=== PATIENT | female | born 1980 | race Caucasian/White ===

== ENCOUNTER 2018-03-18 09:58 | Inpatient (IN) | payer BC, MEDICAID ==
[~2018-03-18] VITALS: Ht 157.5 cm; Wt 79.5 kg
[2018-03-18] VITALS (25 sets, daily range): BP systolic 98–140; BP diastolic 54–85; PULSE 67–105; TEMP 97.6–98.1
[~2018-03-18 09:58] MED LIST: MOTRIN 600600 MG/TAB PO; PERCOCET 325 MG1 TA2 PO
[2018-03-18] MEDS ORDERED: ZOLOFT 100MG100 MG PO (10:07)
[2018-03-18] MEDS ORDERED: ALBUTEROL S0.4 MG/ML PO (10:08)
[2018-03-18] MEDS ORDERED: TYLENOL 325MG325 MG PO (10:09)
[2018-03-18] MEDS ORDERED: PRENATAL MVI PO (10:09)
[2018-03-18] MEDS ORDERED: ALBUTEROL SULFAT3 M3 IH (10:09)
[2018-03-18 10:48] LABS: BASO # 0.1 (0.0-0.2); BASO % 0.4 % (0.0-2.0); EOS # 0.2 (0.0-0.7); EOS % 1.7 % (0-4.0); GRAN # 9.8 (1.4-6.5); GRAN % 74.2 % (42.2-75.2); HEMOGLOBIN 11.4 g/dl (12.5-16.0); LYMPH # 2.1 (1.2-3.4); LYMPH % 15.6 % (20.0-51.0); MEAN CELL VOLUME 89 fl (80.0-100.0); MEAN CORPUSCULAR HEMOGLOBIN 30 pg (27.0-31.0); MEAN CORPUSCULAR HGB CONC 34 g/dl (33.0-37.0); MEAN PLATELET VOLUME 10.7 fl (7.4-10.4); MONO # 0.9 (0.1-0.6); MONO % 6.9 % (1.7-9.3); PLATELET COUNT 296 K/mm3 (130-400); RED BLOOD COUNT 3.76 M/mm3 (4.10-5.30)
[2018-03-18 10:51] LABS: HEMATOCRIT 33.6 % (37.0-47.0)
[2018-03-19 01:30] VITALS: BP 108/54; PULSE 82; TEMP 97.2
[2018-03-19 05:40] VITALS: BP 116/74; PULSE 80; TEMP 97.5
[2018-03-19 10:03] VITALS: BP 113/58; PULSE 85; TEMP 97.8
[2018-03-19 17:12] VITALS: BP 115/71; PULSE 81; TEMP 97.9
[2018-03-19 21:30] VITALS: BP 113/70; PULSE 83; TEMP 97.8
[2018-03-20 08:31] VITALS: BP 117/66; PULSE 90; TEMP 97.8
[2018-03-20] MEDS ORDERED: PERCOCET 325 MG1 TA2 PO (09:54)
[2018-03-20] MEDS ORDERED: IBU800 M1 PO (09:54)
== END 2018-03-20 11:45 | disposition home or self-care (01) | DRG 775 ==
LOC: LDRO 09:58 → LDR 10:24 → OB 16:07
PROVIDERS: Student in an Organized Health Care Education/Training Program
PROC: 10E0XZZ Delivery of Products of Conception, External Approach (ICD-10-PCS; principal; 2018-03-18)
DX: O42.013 Preterm premature rupture of membranes, onset of labor within 24 hours of rupture, third trimester (principal); Z3A.36 36 weeks gestation of pregnancy; Z37.0 Single live birth; Z22.330 Carrier of Group B streptococcus; O99.334 Smoking (tobacco) complicating childbirth; J45.909 Unspecified asthma, uncomplicated; O99.344 Other mental disorders complicating childbirth; F41.8 Other specified anxiety disorders; O71.82 Other specified trauma to perineum and vulva
CPT/HCPCS: J2540; J2590; J7120

== ENCOUNTER 2019-12-25 17:12 | Inpatient (IN) | payer OTHER ==
[~2019-12-25] VITALS: Ht 157.5 cm; Wt 72.6 kg
[~2019-12-25 17:12] MED LIST changes: +ALBUTEROL S0.4 MG/ML PO; +ALBUTEROL SULFAT3 M3 IH; +IBU800 M1 PO; +PRENATAL MVI PO; +TYLENOL 325MG325 MG PO; +ZOLOFT 100MG100 MG PO
[2019-12-25 17:59] LABS: HEMOGLOBIN 12.3 g/dl (12.5-16.0); MEAN CELL VOLUME 89 fl (80.0-100.0); MEAN CORPUSCULAR HEMOGLOBIN 30 pg (27.0-31.0); MEAN CORPUSCULAR HGB CONC 34 g/dl (33.0-37.0); MEAN PLATELET VOLUME 9.4 fl (7.4-10.4); PLATELET COUNT 302 K/mm3 (130-400); RED BLOOD COUNT 4.07 M/mm3 (4.10-5.30); REDCELL DISTRIBUTION WIDTH-CV 12.4 % (11.5-14.5)
[2019-12-25 18:10] LABS: ALBUMIN 3.7 gm/dL (3.5-5.0); BILIRUBIN,TOTAL 0.9 mg/dL (0.0-1.0); CALCIUM 8.3 mg/dL (8.4-10.2); CREATININE, serum 0.65 (0.52-1.25); POTASSIUM 3.3 mmol/L (3.4-5.0); TOTAL PROTEIN 6.5 gm/dL (6.4-8.2)
[2019-12-25 18:13] LABS: HEMATOCRIT 36.1 % (37.0-47.0)
[2019-12-25 19:37] LABS: BAND 22 % (0-10); EOSINOPHIL 2 % (0-4); LYMPHOCYTE 16 % (20.0-51.0); NEUTROPHILS 58 % (42.0-75.2)
[2019-12-25 19:38] LABS: PLATELET ESTIMATE NORMAL (NORMAL); TOXIC GRANULATION PRESENT
[2019-12-25 22:20] LABS: COLLECTION METHOD CLEAN CATCH
[2019-12-25 22:26] LABS: PH 5 (5-8); SQUAMOUS EPITHELIAL 0-2 /hpf; URINE APPEARANCE Clear; URINE BACTERIA None Seen /hpf; URINE BILIRUBIN Negative (NEGATIVE); URINE BLOOD 2+ (NEGATIVE); URINE COLOR Yellow; URINE GLUCOSE Negative (NEGATIVE); URINE KETONE Negative (NEGATIVE); URINE LEUKOCYTE ESTERASE Negative (NEGATIVE); URINE NITRATE Negative (NEGATIVE); URINE PROTEIN(semi-quant) Negative (NEGATIVE); URINE UROBILINOGEN Negative (NEGATIVE)
[2019-12-26] VITALS (1127 sets, daily range): BP systolic 87–116; BP diastolic 50–76; PULSE 118–130; TEMP 97.9–100.2; O2SAT 67–100
[2019-12-26] MEDS ORDERED: WOMEN'S DAILY1 TAB PO (01:56)
[2019-12-26] MEDS ORDERED: PROZAC60 MG PO (01:58)
[2019-12-27] VITALS (720 sets, daily range): BP systolic 85–115; BP diastolic 53–77; PULSE 101–116; TEMP 97.5–99; O2SAT 69–100
[2019-12-27 10:17] LABS: MEAN CELL VOLUME 92 fl (80.0-100.0); MEAN CORPUSCULAR HGB CONC 32 g/dl (33.0-37.0); MEAN PLATELET VOLUME 10.5 fl (7.4-10.4); PLATELET COUNT 294 K/mm3 (130-400); RED BLOOD COUNT 3.13 M/mm3 (4.10-5.30); REDCELL DISTRIBUTION WIDTH-CV 13.2 % (11.5-14.5)
[2019-12-27 10:20] LABS: ALBUMIN 2.2 gm/dL (3.5-5.0); BILIRUBIN,TOTAL 0.4 mg/dL (0.0-1.0); CALCIUM 7.1 mg/dL (8.4-10.2); CREATININE, serum 0.47 (0.52-1.25); POTASSIUM 3.7 mmol/L (3.4-5.0); TOTAL PROTEIN 4.6 gm/dL (6.4-8.2)
[2019-12-27 10:32] LABS: HEMATOCRIT 28.9 % (37.0-47.0); MEAN CORPUSCULAR HEMOGLOBIN 30 pg (27.0-31.0)
[2019-12-27 10:33] LABS: HEMOGLOBIN 9.3 g/dl (12.5-16.0)
[2019-12-27 11:41] LABS: BAND 23 % (0-10); LYMPHOCYTE 8 % (20.0-51.0)
[2019-12-27 11:42] LABS: BURR CELLS 2+; HYPOCHROMIA 1+; NEUTROPHILS 65 % (42.0-75.2)
[2019-12-28 00:35] VITALS: BP 107/70; PULSE 109; TEMP 100.1
[2019-12-28 04:08] VITALS: BP 103/63; PULSE 93; TEMP 98.3
[2019-12-28 07:09] LABS: MEAN CELL VOLUME 90 fl (80.0-100.0); MEAN CORPUSCULAR HGB CONC 33 g/dl (33.0-37.0); MEAN PLATELET VOLUME 10.6 fl (7.4-10.4); PLATELET COUNT 348 K/mm3 (130-400); RED BLOOD COUNT 3.09 M/mm3 (4.10-5.30); REDCELL DISTRIBUTION WIDTH-CV 13.2 % (11.5-14.5)
[2019-12-28 07:10] LABS: HEMATOCRIT 27.7 % (37.0-47.0); HEMOGLOBIN 9.2 g/dl (12.5-16.0); MEAN CORPUSCULAR HEMOGLOBIN 30 pg (27.0-31.0)
[2019-12-28 07:18] VITALS: BP 118/72; PULSE 97; TEMP 97.9
[2019-12-28 07:19] LABS: ALBUMIN 2.5 gm/dL (3.5-5.0); BILIRUBIN,TOTAL 0.3 mg/dL (0.0-1.0); CALCIUM 7.4 mg/dL (8.4-10.2); CREATININE, serum 0.46 (0.52-1.25); POTASSIUM 3.5 mmol/L (3.4-5.0)
[2019-12-28 07:55] LABS: BAND 17 % (0-10); EOSINOPHIL 1 % (0-4); LYMPHOCYTE 9 % (20.0-51.0); METAMYELOCYTE 1 % (0-0); NEUTROPHILS 63 % (42.0-75.2); PLATELET ESTIMATE NORMAL (NORMAL)
[2019-12-28 11:19] VITALS: BP 114/71; PULSE 104; TEMP 100.2
[2019-12-28 16:04] VITALS: BP 108/59; PULSE 98; TEMP 98
[2019-12-28 20:00] VITALS: BP 118/70; PULSE 100; TEMP 98.1
[2019-12-29 03:42] VITALS: BP 116/66; PULSE 107; TEMP 99.1
[2019-12-29 07:38] LABS: MEAN CELL VOLUME 89 fl (80.0-100.0); MEAN CORPUSCULAR HGB CONC 33 g/dl (33.0-37.0); MEAN PLATELET VOLUME 10.4 fl (7.4-10.4); PLATELET COUNT 389 K/mm3 (130-400); RED BLOOD COUNT 3.25 M/mm3 (4.10-5.30); REDCELL DISTRIBUTION WIDTH-CV 13.1 % (11.5-14.5)
[2019-12-29 07:41] VITALS: BP 114/72; PULSE 98; TEMP 98.9
[2019-12-29 07:44] LABS: HEMATOCRIT 28.9 % (37.0-47.0); HEMOGLOBIN 9.5 g/dl (12.5-16.0); MEAN CORPUSCULAR HEMOGLOBIN 29 pg (27.0-31.0)
[2019-12-29 07:56] LABS: ALBUMIN 2.7 gm/dL (3.5-5.0); BILIRUBIN,TOTAL 0.4 mg/dL (0.0-1.0); CREATININE, serum 0.43 (0.52-1.25); POTASSIUM 3.9 mmol/L (3.4-5.0); TOTAL PROTEIN 5.5 gm/dL (6.4-8.2)
[2019-12-29 08:41] LABS: BAND 9 % (0-10); EOSINOPHIL 3 % (0-4); HYPOCHROMIA 1+; LYMPHOCYTE 11 % (20.0-51.0); NEUTROPHILS 59 % (42.0-75.2)
[2019-12-29 11:53] VITALS: BP 123/65; PULSE 102; TEMP 100.1
[2019-12-29] MEDS ORDERED: TAMIFLU 75MG75 MG PO (11:54)
[2019-12-29] MEDS ORDERED: OMNICEF 300MG300 MG PO (11:54)
[2019-12-29] MEDS ORDERED: ALBUTEROL SULFAT3 M3 IH (11:55)
[2019-12-29] MEDS ORDERED: CLASSIC PRENATAL PO (11:57)
== END 2019-12-29 16:03 | disposition home or self-care (01) | DRG 831 ==
LOC: COL.ER 17:12 → SURG 12-26 00:04 → ICU 12-26 00:04 → SURG 12-27 14:50
PROVIDERS: Nurse Practitioner; Physician Assistant; ADMIT Hospitalist
PROC: 02HV33Z Insertion of Infusion Device into Superior Vena Cava, Percutaneous Approach (ICD-10-PCS; principal; 2019-12-26)
DX: O98.811 Other maternal infectious and parasitic diseases complicating pregnancy, first trimester (principal); A41.89 Other specified sepsis; J10.00 Influenza due to other identified influenza virus with unspecified type of pneumonia; R65.21 Severe sepsis with septic shock; E87.1 Hypo-osmolality and hyponatremia; O99.341 Other mental disorders complicating pregnancy, first trimester; O99.511 Diseases of the respiratory system complicating pregnancy, first trimester; O99.011 Anemia complicating pregnancy, first trimester; D64.9 Anemia, unspecified; J45.909 Unspecified asthma, uncomplicated; O99.281 Endocrine, nutritional and metabolic diseases complicating pregnancy, first trimester; Z3A.01 Less than 8 weeks gestation of pregnancy
CPT/HCPCS: 99223-AI; 99232-AI; 99239; A4216; J0456; J0696; J1650; J2405; J2550; J3480; J7030; J7050; J7060